=== PATIENT | female | born 1960 | race Caucasian/White ===

== ENCOUNTER 2024-09-01 22:23 | Emergency (ER) | payer MEDICARE, OTHER, SELFPAY ==
--- OUTSIDE RECORDS SUMMARY | 2024-09-01 22:25 | XMS_ITS | Clinical Summary ---
Author Organization [facility] Address [address] [place] [address] Phone Care Team Providers Care Scholastic Aptitude Test Grader Name Role Phone Laquita Victoria MD Primary Care Provider [phone] Source Comments Arganteal is fully rolled out on Zynstra. Last update 01/09/09.[facility] Allergies No known active allergies Medications * This document contains information received from the source organization and may not represent a complete record from that organization. * Be aware that medications may not be up to date as of this document. Always verify current medications with patient. 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 Atrophic vaginitis 06/21/2010 Resolved Problems Problem Noted Date Diagnosed Date Resolved Date Fatigue 06/01/2014 07/18/2019 Encounters Date Type Department Care Team Description 07/08/2024 Patient Outreach [facility] [address] [place] [address] Kamila Solis, IBCLC 06/24/2024 9:30 AM WAREHOUSE PULLER Office Visit [facility] [address] [place] [address] Laquita Victoria MD Colon cancer screening (Primary Dx); Routine history and physical examination of adult; Insomnia, unspecified type; Other fatigue; Medicare annual wellness visit, initial; Abnormal finding of blood chemistry, unspecified; Abnormal findings on diagnostic imaging of other parts of digestive tract Discharge Disposition: Discharged to home or self care 06/24/2024 Travel from Last 3 Months Immunizations Name Administration Dates Next Due COVID-19 Vaccine Bivalent (PFIZER) 12 Years and Older 05/19/2022 COVID-19 Vaccine Monovalent (PFIZER-COMIRNATY) 12 Years and Older 06/24/2024 Hepatitis A Vaccine (HAVRIX) - Adult 19 years and Older 07/17/2002,08/02/2001 Tetanus Toxoid, Reduced Diph theroid Toxoid Acellular Pertussis 12/11/2017 Family History Medical History Relation Name Comments Cancer Breast Maternal Grandmother Cancer Mother Cancer Breast Mother parkinson Mother Relation Name Status Comments Maternal Grandmother age of onset 55 Mother ageof onset 47 Social History Tobacco Use Types Packs/Day Years Used Date Smoking Tobacco: Never Smokeless Tobacco: Never Tobacco Cessation:Counseling Given: No Alcohol Use Standard Drinks/Week Comments No 0 (1 standard drink = 0.6 oz pur e alcohol) PHQ-2 Answer Date Recorded PHQ-2 Subtotal 0 06/24/2024 Hunger Vital Sign Answer Date Recorded Within the past 12 months, y ou worried that your food would run out before you got the money to buy more. Never true 06/24/20 24 Within the past 12 months, t he food you bought just didn't last and you didn't have money to get more. Never true 06/24/2024 Comments No Sex and Gender Information Value Date Recorded Sex Assigned at Female 09/19/2019 7:07 AM WAREHOUSE PULLER Legal Sex Female 12:52 AM WAREHOUSE PULLER Gender Identity Female 09/19/2019 7:07 AM WAREHOUSE PULLER Sexual Orientation Not on file Last Filed Vital Signs Vital Sign Reading Time Taken Comments Blood Pressure 131/80 06/24/2024 9:08 AM WAREHOUSE PULLER Pulse 61 06/24/2024 9:08 AM WAREHOUSE PULLER Temperature 36.7 C (98 F) 06/24/2024 9:08 AM WAREHOUSE PULLER Respiratory Rate - - Oxygen Saturation 98% 06/24/2024 9:08 AM WAREHOUSE PULLER Inhaled Oxygen Concentration - - Weight 76.6 kg (168 lb 12.8 oz) 06/24/2024 9:08 AM WAREHOUSE PULLER Height 154 cm (5' 0.63) 06/24/2024 9:08 AM WAREHOUSE PULLER Body Mass Index 32.28 06/24/2024 9:08 AM WAREHOUSE PULLER Plan of Treatment Health Maintenance Due Date Last Done Comments CT Colonography 1959 Colonoscopy 1959 Dental Oral Exam 1959 Dental Prophylaxis 1959 Dental X-Ray: Bitewings 1959 Sigmoidoscopy 1959 Periodontal Maintenance 1973 Medicare Annual Wellness 1977 Imm: Flu (#1) 04/07/2024 07/12/2023 iFOB/FIT 05/30/2024 05/30/2023, 01/05, 06/21/2010 Imm: Pneumonia greater than 65 years (1 of 1 - PCV) 2024 Osteoporosis Screening (Dexa Scan) 2024 HEALTH MAINTENANCE PROTOCOL 02/20/202502/04, 12/21/2021, 09/05/2011 MEDICATION REFILL PROTOCOL 02/20/202502/20, 12/21/2021, 05/26/2016 PREVENTATIVE VISIT 06/24/2025 06/24/2024, 1 , 01/14/2021, Additional history exists Breast Cancer Screening 09/12/2025 09/12/19, 05/24/2022, 05/24/2022, Additional history exists Colorectal Cancer Screening 06/26/2027 FIT/Cologuard 06/26/2027 06/26/2024 Imm: DTaP/Tdap (2 - Td or Tdap) 12/12/2027 12/11/2017 Lipid Screening 06/24/2029 06/24/2024, 07/07, 05/19/2022, Additional history exists Imm: HepA Aged Out 07/17/2002, 08/02/2001 No lo nger eligible based on patient's age to complete this topic Cervical Cancer Screening Age 30-65 Discontinued 12/11/2017, 11/27/2009 Imm: Zoster Completed 01/08/2024, 10/13/2023 Hepatitis C Screening Completed 06/24/2024 Imm: COVID-19 Completed 06/24/2024, 12/0 01/2023, 05/19/2022, Additional history exists HIV Screening Discontinued Imm: HPV Aged Out No longer eligi ble based on patient's age to complete this topic Imm: HepB Aged Out No longer eligi ble based on patient's age to complete this topic Imm: Hib Aged Out No longer eligi ble based on patient's age to complete this topic Imm: Meningitis Aged Out No longer el igible based on patient's age to complete this topic Procedures Procedure Name Priority Date/Time Associated Diagnosis Comments TC LAB COLLECTION: VENOUS DRAW-HB CLINICS Routine 06/24/2024 10:35 AM WAREHOUSE PULLER EXTRA TUBE - LAVENDER Routine 06/24/2024 10:35 AM WAREHOUSE PULLER PANEL LIPID Routine 06/24/2024 10:32 AM WAREHOUSE PULLER Routine history and physical examination of adult Other fatigue Medicare annual wellness visit, initial Abnormal findings on diagnostic imaging of other parts of digestive tract C-REACTIVE PROTEIN Routine 06/24/2024 10 :32 AM WAREHOUSE PULLER Routine history and physical examination of adult Other fatigue Medicare annual wellness visit, initial PC TRIIODONTNYRONINE T3 FREE Routine 06/24/2024 10:32 AM WAREHOUSE PULLER Other fatigue Medicare annual wellness visit, initial T4 FREE (DIRECT ANALYSIS) Routine 2023 10:32 AM WAREHOUSE PULLER Other fatigue Medicare annual wellness visit, initial PC LAB THYROID PEROXIDASE LINDA TPO LINDA Routine 06/24/2024 10:32 AM WAREHOUSE PULLER Other fatigue Medicare annual wellness visit, initial PC THYROID STIMULATING HORMONE(TSH) VINH Routine 06/24/2024 10:32 AM WAREHOUSE PULLER Other fatigue Medicare annual wellness visit, initial PC BLOOD OCCULT FECAL HGB Routine 2022 8:00 AM CDT Colon cancer screening [facility] MAMMOGRAM SCRN SHELLEY DIGITAL Routine 05/24/2022 1:20 PM CDT Visit for screening mammogram PAP SMEAR FINAL REPORT Routine 0 2:02 PM CDT from Last 3 Months or Most Recently Relevant to Health Maintenance Results * EXTRA TUBE - LAVENDER (06/24/2024 10:35 AM WAREHOUSE PULLER) LAVENDER TUBE [facility] Comment:Lavendar (EDTA) tube s collected at [facility] are stored for 3 days from the collection date. Blood 06/24/2024 10:3 5 AM WAREHOUSE PULLER 06/24/2024 10:51 AM WAREHOUSE PULLER us Laquita Victoria MD LABORATORY Final Result Performing Organization Address City/[facility]/ZIP Co de Phone Number [facility] [address] [place] [address] * (ABNORMAL) GLYCOSYLATED HGB - A1C (06/24/2024 10:35 AM WAREHOUSE PULLER) Hemoglobin A1C 5.9(H) 4.0 - 5.6 % [facility] Comment: Increased risk for diabetes (prediabetes): 5.7-6.4% Diabetes >=6.5% In the absence of unequivocal hyperglycemia, diagnosis requires two abnormal test results (i.e. HbA1c and glucose) or two abnormal results from specimens collected at two different timepoints. The presence of some hemoglobin variants or red cell disorders may interfere with the measurement of hemoglobin A1c (HbA1c). Estimated Average Glucose 123(H) 68 - 114 mg/dL [facility] Comment: The estimated Average Glucose (eAG) was calculated using an equation derived from a study of 507 adults with type 1, type 2, or no diabetes. Minority populations were underrepresented and children were not included. The eAG is not equivalent to a fasting glucose concentration. Blood 06/24/2024 10:3 5 AM WAREHOUSE PULLER 06/24/2024 1:12 PM WAREHOUSE PULLER us Laquita Victoria MD LABORATORY Final Result [address] [address] * T3 FREE (06/24/2024 10:32 AM WAREHOUSE PULLER) T3 Free 2.9 2.0 - 4.4 pg/mL [facility] Serum 06/24/2024 10:3 2 AM WAREHOUSE PULLER 06/24/2024 1:55 PM WAREHOUSE PULLER Laquita Victoria MD LABORATORY Final Result Performing Organization Address City/[facility]/ZIP Co de Phone Number [address] [address] * TSH (06/24/2024 10:32 AM WAREHOUSE PULLER) TSH 2.89 0.27 - 4.20 mIU/L [facility] Blood 06/24/2024 10:3 2 AM WAREHOUSE PULLER 06/24/2024 1:57 PM WAREHOUSE PULLER Laquita Victoria MD LABORATORY Final Result Performing Organization Address [facility] Co de Phone Number [address] [address] * THYROID PEROXIDASE LINDA (TPO) (06/24/2024 10:32 AM WAREHOUSE PULLER) Pathologist [facility] TPO Linda 3.5 0.0 - 9.0 IU/mL [employer] Comment: Performed By: [facility] [address] [place] [id number] Bathhouse Keeper: Devon Erwin MD, PhD CLIA Number: [id number] Performed by [facility] [address] [place] [id number] [email or web address] Olvin Garcia MD, MS, Director of Laboratories Blood 06/24/2024 10:3 2 AM WAREHOUSE PULLER 06/24/2024 1:55 PM WAREHOUSE PULLER us Laquita Victoria MD LABORATORY Final Result Performing Organization Address City/[facility]/ZIP Co de Phone Number [employer] [address] [place] [address], * (ABNORMAL) PANEL LIPID (06/24/2024 10:32 AM WAREHOUSE PULLER) Cholesterol 287(H) <=200 mg/dL [facility] Comment: Interpretive Data <200 Desirable 200-239 Borderline high >=240 High HDL 74 >=50 mg/dL [facility] Comment: Interpretive Data Normal > 40 Male > 50 Female Triglyceride 112 <=150 mg/dL [facility] Comment: Interpretive Data <150 Normal 150-199 Borderline high 200-499 High >=500 Very high Calc LDL 191(H) <=100 mg/dL [facility] Comment: Interpretive Data <100 Desirable 100-129 Above desirable 130-159 Borderline high 160-189 High >=190 Very high Non-HDL Cholesterol Calculated 213(H) <=130 mg/dL [facility] Comment: Interpretive Data <130 Desirable 130-159 Above desirable 160-189 Borderline high 190-219 High >=220 Very high Blood 06/24/2024 10:3 2 AM WAREHOUSE PULLER 06/24/2024 1:57 PM WAREHOUSE PULLER Narrative [facility] - 06/24/2024 2:36 PM WAREHOUSE PULLER Fasting: Yes us Laquita Victoria MD LABORATORY Edited Result - Final [facility] [address] [address] * T4 FREE (DIRECT ANALYSIS) (06/24/2024 10:32 AM WAREHOUSE PULLER) T4 Free 1.2 0.9 - 1.7 ng/dL [facility] Blood 06/24/2024 10:3 2 AM WAREHOUSE PULLER 06/24/2024 1:57 PM WAREHOUSE PULLER us Laquita Victoria MD LABORATORY Final Result [facility] [address] [address] * C-REACTIVE PROTEIN (06/24/2024 10:32 AM WAREHOUSE PULLER) C-Reactive Protein <3 <=4 mg/L [facility] Blood 06/24/2024 10:3 2 AM WAREHOUSE PULLER 06/24/2024 1:57 PM WAREHOUSE PULLER us Laquita Victoria MD LABORATORY Final Result Performing Organization Address [facility] Co de Phone Number [facility] [address] [address] * IFOB (FECAL OCCULT BLOOD IMMUNOASSAY) (05/30/2023 8:00 AM CDT) Fecal Occult Blood Immunoassay Negative Negative [facility] Feces 05/30/2023 8:00 AM CDT 05/30/2023 10:56 PM CDT us Laquita Victoria MD LABORATORY Final Result Performing Organization Address [facility] de Phone Number [facility] [address] [address] * [facility] MAMMOGRAM SCREEN BILAT DIGITAL (05/24/2022 1:20 PM CDT) Anatomical Region Laterality Modality Breast Bilateral Mammography Narrative 05/25/2022 8:14 AM CDT [facility] MAMMOGRAM SCREEN BILAT DIGITAL 05/24/2022 1320 FINDINGS: The breast tissue demonstrates scattered fibroglandular densities. No mass, malignant appearing calcifications or secondary signs of carcinoma evident. No mammographic evidence of malignancy in the breasts. Recommend continued screening. This imaging procedure was performed using FFDM us Laquita Victoria MD RAD MAMMO Final Result * PAP SMEAR FINAL REPORT (11/27/2009 2:02 PM CDT) Pap Final [facility] Accession Number: [id number] Source: SurePath liquid-based Pap test Final Interpretation: NEGATIVE FOR INTRAEPITHELIAL LESION OR MALIGNANCY * Report Electronically Signed By * TROY Ortiz, CT(ASCP) Screening Performed By: TROY Ortiz, CT(ASCP) AMT 12/04/09 Adequacy Interpretation: Satisfactory For Evaluation. Clinical History: MENSTRUAL STATUS: Not LMP: _ PREVIOUS ABNORMALS: _ HORMONE STATUS: _ [facility] 11/27/2009 2:02 PM CDT us Laquita Victoria MD LAB PATHOLOGY Final Result [facility] [address] [place] [address] from Last 3 Months or Most Recently Relevant to Health Maintenance Insurance [place] MEDICAID [employer] Address: [facility] [address] [address] [place] [address] MEDICARE Care Teams Scholastic Aptitude Test Grader Relationship Specialty Start Date End Date Laquita Victoria MD PCP - General Family Medicine 11/25/09
--- OUTSIDE RECORDS SUMMARY | 2024-09-01 22:25 | XMS_ITS ---
Author Organization [facility] Address [address] [place] [address] Care Team Providers Care Car Unloader Helper Name Role Phone Unavailable Unavailable Unavailable Surgery Details Not on file Complications Check Surgery Details section. Procedure Estimated Blood Loss Check Surgery Details section. Procedure Findings Check Surgery Details section. Procedure Specimens Taken Check Surgery Details section.
--- OUTSIDE RECORDS SUMMARY | 2024-09-01 22:25 | XMS_ITS | Clinical Summary ---
Author Organization [facility] Address [address] [place] [address] Care Team Providers Care Tai Chi Instructor Name Role Phone Clyde Ayala M.D. Primary Care Provider [phone] Source Comments Patient records contain information from all sites at [facility]. For routine questions regarding patient records, call [phone] during business hours, M-F 8:00 AM - 5:00 PM Central Time. Record requests for emergency care only can be directed to [phone] at any time.[facility] Allergies No known active allergies Medications estradiol 0.01% oil in vanicream 08/07/2015 Active estradioL (ESTRACE) 0.1 mg/g (0.01%) vaginal cream APPLY 1G TO VAGINA DAILY FOR 7 DAYS, THEN DECREASE TO 1-3 TIMES WEEKLY 09/29/2023 Active Active Problems Problem Noted Date Diagnosed Date Hyperlipidemia Mixed 07/17/2023 Restless Leg Syndrome 08/12/2022 Postmenopausal Atrophic Vaginitis 06/21/2010 Encounters Date Type Department Care Team Description 06/11/2024 Orders Only [facility] Clyde Ayala M.D. Hyperlipidemia Mixed from Last 3 Months Immunizations Immunization Administration Dates Next Due HepA Adult 07/17/2002,08/02/2001 HepA, Unspecified 07/17/2002,08/02/2001 RZV (SHINGRIX) 10/13/2023 Tdap 12/11/2017 influenza vaccine quad (FLUZ ONE/FLUARIX) (6 months and older)(PF) 07/12/2023 Family History Medical History Relation Name Comments Colon cancer Brother Mao Marlow Dementia Father Dinh Marlow Stroke induced dementia Stroke Father Dinh Marlow Breast cancer Maternal Grandmother Anxiety disorder Mother Carissa Marlow with the Pa luisa Breast cancer Mother Carissa Marlow masectomy, sole vived 40 years Dementia Mother Carissa Marlow parkinsons rela george dementia Parkinson disease Mother Carissa Marlow at 89 Melanoma Sister Nadya Christine Relation Name Status Comments Brother Mao Marlow Alive AT AGE 63. Father Dinh Marlow Maternal Grandmother Mother Carissa Marlow Sister Nadya Christine Social History Tobacco Use Types Packs/Day Years Used Date Smoking Tobacco: Never Smokeless Tobacco: Never Tobacco Cessation:Counseling Given: Yes Alcohol Use Standard Drinks/Week Comments Yes 0 (1 standard drink = 0.6 oz pur e alcohol) 0ne glass a month Overall Financial Resource Strain (CARDIA) Answe r Date Recorded How hard is it for you to pa y for the very basics like food, housing, medical care, and heating? Not hard at all 07/10/2023 PHQ-2 Answer Date Recorded PHQ-2 Score 0 11/23/2023 Exercise Vital Sign Answer Date Recorde d On average, how many days pe r week do you engage in moderate to strenuous exercise (like a brisk walk)? 6 days 07/10/2023 On average, how many minutes do you engage in exercise at this level? 60 min 07/10/2023 Hunger Vital Sign Answer Date Recorded Within the past 12 months, y ou worried that your food would run out before you got the money to buy more. Never true 07/10/20 23 Within the past 12 months, t he food you bought just didn't last and you didn't have money to get more. Never true 07/10/2023 PRAPARE - Transportation Answer Date Re corded In the past 12 months, has l ack of transportation kept you from medical appointments or from getting medications? No 11/2022 In the past 12 months, has l ack of transportation kept you from meetings, work, or from getting things needed for daily living? No 07/10/2023 Nutrition Answer Date Recorded Nutrition: EVOO Fat Source Unknown 07/10 On average, how many serving s of fruits and vegetables do you eat per day (serving size is equal to 1 cup or approximately the size of a tennis ball)? 5 or more 07/10/2023 Dental Answer Date Recorded Dental: Regular Dentist Yes 07/10/20 Employment Answer Date Recorded Employment status Employed and actively working without restrictions 07/10/2023 Housing Stability Answer Date Recorded What is your living situation today? I have a [facility] place to live 07/10/2023 Comments No Sex and Gender Information Value Date Recorded Sex Assigned at Female 07/10/2023 11:26 AM [employer] Legal Sex Female 2:27 PM [employer] Gender Identity Female 07/10/2023 11:26 AM [employer] Sexual Orientation Straight 07/10/2023 11 :26 AM [employer] Last Filed Vital Signs Vital Sign Reading Time Taken Comments Blood Pressure 112/71 11/23/2023 3:17 PM CDT Pulse 73 11/23/2023 3:17 PM CDT Temperature 36.6 C (97.9 F) 11/23/2023 3:17 PM CDT Respiratory Rate 20 11/23/2023 3:17 PM CDT Oxygen Saturation 98% 07/17/2023 3:06 PM [employer] Inhaled Oxygen Concentration - - Weight 75.8 kg (167 lb) 11/23/2023 3:17 PM CDT Height 158.5 cm (5' 2.4) 07/17/2023 3:06 PM [employer] Body Mass Index 30.15 07/17/2023 3:06 PM [employer] Plan of Treatment Upcoming Encounters Date Type Department Care Team (Late st Contact Info) Description 10/01/2024 3:00 PM [employer] Appointment Department of Radiology in [place], [place] [address] [place] [phone] Clyde Ayala M.D. [address] [place] [phone] Discharge Disposition: Home or Self Care Health Maintenance Due Date Last Done Comments Bone Density Scan (Osteoporosis Screen) 1959 CT Colonography 1959 Hepatitis C Screening 1960 Pneumococcal vaccine (50+ years) (1 of 1 - PCV) 2009 Zoster Vaccines (2 of 2) 12/08/2023 10/13/2023 Influenza Vaccine (#1) 2024 07/12/2023 Colonoscopy 05/30/2024 05/30/2023 (Perf ormed elsewhere) Colorectal Cancer Surveillance 06/19/2024 Lipid (Cholesterol) Screening 07/17/2024 07/17/2023 Depression Screening (Annual PHQ-2) 08/07/2024 Fall Risk Screen (Annual) 08/07/2024 Mammogram 09/12/2024 09/12/2023, 05/07, 05/24/2022, Additional history exists Fasting Glucose for Diabetes Screening 11/22/2024 11/23/2023, 07/17/2023 Visit: Annual, age 65+ (or Medicare and <65) 11/22/2024 11/23/2023 Cologuard 06/18/2027 06/18/2024 DTaP,Tdap,and Td Vaccines (2 - Td or Tdap) 12/12/2027 12/11/2017 Cervical/Vaginal Cancer Screening 07/17/2028 07/17/2023, 07/17/2023, 12/11/2017 Hepatitis A Vaccines Completed 07/17/2002, 07/17/2002, 08/02/2001, Additional history exists COVID-19 Vaccine Completed 06/24/2024, 01/2023, 05/19/2022, Additional history exists IPV Vaccines Aged Out No longer eligi ble based on patient's age to complete this topic Procedures Procedure Name Priority Date/Time Associated Diagnosis Comments BASIC METABOLIC PANEL, S/P Routine 11/23/2023 4:08 PM CDT Pain Hip Right Pain Toe Left BI BREAST SCREENING BILATERAL WITH TOMOSYNTHESIS RAD - Routine (most inpatients and all outpatients) 09/12/2023 5:08 PM [employer] Screening Mammogram Breast Cancer HPV WITH GENOTYPING, PCR, THINPREP Routine 07/17/2023 4:04 PM [employer] LIPID PANEL, S Routine 07/17/2023 3:55 PM [employer] Hyperlipidemia Mixed from Last 3 Months or Most Recently Relevant to Health Maintenance Results * Basic Metabolic Panel (11/23/2023 4:08 PM CDT) Potassium, P 4.3 3.6 - 5.2 mmol/L 11/23/2023 8:05 PM CDT NPRG Sodium, P 140 135 - 145 mmol/L 11/23/2023 8:05 PM CDT NPRG Chloride, P 103 98 - 107 mmol/L 11/23/2023 8:05 PM CDT NPRG Bicarbonate, P 29 22 - 29 mmol/L 11/23/2023 8:05 PM CDT NPRG Anion Gap, P 8 7 - 15 11/23/2023 8:05 PM CDT NPRG BUN (Blood Urea Nitrogen), P 14 6 - 21 mg/dL 11/23/2023 8:05 PM CDT NPRG Creatinine 0.72 0.59 - 1.04 mg/dL 11/23/2023 8:05 PM CDT NPRG Estimated GFR (eGFR) >90 >=60 mL/min/BSA 11/23/2023 8:05 PM CDT NPRG Comment: Estimated GFR calculated using the 2020 CKD_EPI creatinine equation. Calcium, Total, P 9.4 8.8 - 10.2 mg/dL 11/23/2023 8:05 PM CDT NPRG Glucose, P 98 70 - 140 mg/dL 11/23/2023 8:05 PM CDT NPRG Blood (Blood, Venous) 11/23/2023 4:08 PM CDT 11/23/2023 7:12 PM CDT us Neftaly Mantilla M.D. LAB BLOOD ADD-ON Final Result [facility] [address] [place] [address], [place] NPRG [facility] [address] [place] [address] * BI Breast Screening Bilateral with Tomosynthesis (09/12/2023 5:08 PM [employer]) Anatomical Region Laterality Modality Breast, Breast Imaging RST L OS, Breast Imaging ARZ LOS, Breast Imaging FLA LOS Bilateral Mammography Impressions 09/19/2023 10:04 AM [employer] Negative. RECOMMENDATION: Annual Screening Mammogram ASSESSMENT: BI-RADS: 1: Negative. Narrative 09/19/2023 10:04 AM [employer] EXAM: BI BREAST SCREENING BILATERAL WITH TOMOSYNTHESIS Current study was evaluated with a Computer Aided Detection (CAD) system. INDICATION: Screening mammogram. COMPARISON: Prior exam(s) were available and reviewed for comparison. DENSITY: b. There are scattered areas of fibroglandular density. FINDINGS: No mammographic findings of malignancy. Procedure Note Peggy Hernandez M.D. - 09/19/2023 EXAM: BI BREAST SCREENING BILATERAL WITH TOMOSYNTHESIS Current study was evaluated with a Computer Aided Detection (CAD) system. INDICATION: Screening mammogram. COMPARISON: Prior exam(s) were available and reviewed for comparison. DENSITY: b. There are scattered areas of fibroglandular density. FINDINGS: No mammographic findings of malignancy. IMPRESSION: Negative. RECOMMENDATION: Annual Screening Mammogram ASSESSMENT: BI-RADS: 1: Negative. us Clyde Ayala M.D. IMG BI PROCEDURES Final Result * HPV with Genotyping, PCR, ThinPrep (07/17/2023 4:04 PM [employer]) HPV with Genotyping, ThinPrep, PCR Negative Negative 07/18/2023 2:49 PM [employer] MKTO Comment: Negative for high risk HPV by nucleic acid amplification. The following high risk HPV types were not detected: 16, 18, 31, 33, 35, 39, 45, 51, 52, 56, 58, 59, 66, and 68 This result does not rule out HPV in the patient, as the sensitivity of the test depends on the timing of the specimen collection and the quality of the specimen. Result should be correlated with patient's history, clinical presentation, and POSTIE cytology report. 07/17/2023 4:04 PM [employer] 07/18/2023 7:00 AM [employer] us Clyde Ayala M.D. LAB MICROBIOLOGY - GENERAL ORDER VINAY Final Result [facility] [address] [place] [address], [facility] [address] [facility] [address] [place] [address] * (ABNORMAL) Lipid Panel (07/17/2023 3:55 PM [employer]) Triglycerides 150(H) mg/dL 07/17/2023 8:04 PM [employer] NPRG Comment: ----REFERENCE VALUE---- Normal: <150 mg/dL Borderline High: 150-199 mg/dL High: 200-499 mg/dL Very High: > or =500 mg/dL Cholesterol, Total 229(H) mg/dL 2022 8:04 PM [employer] NPRG Comment: ----REFERENCE VALUE---- Desirable: < 200 mg/dL Borderline High: 200 - 239 mg/dL High: > or = 240 mg/dL Cholesterol, LDL, Calculated 142(H) mg/dL 07/17/2023 8:04 PM [employer] NPRG Comment: ----REFERENCE VALUE---- Desirable: <100 mg/dL Above Desirable: 100-129 mg/dL Borderline High: 130-159 mg/dL High: 160-189 mg/dL Very High: >=190 mg/dL ----ADDITIONAL INFORMATION---- LDL cholesterol calculated using the Murillo/NIH equation. Cholesterol, HDL 60 >=50 mg/dL 07/17/20 8:04 PM [employer] NPRG Cholesterol, Non-HDL, Calculated 169(H) mg/dL 07/17/2023 8:04 PM [employer] NPRG Comment: ----REFERENCE VALUE---- Desirable: <130 mg/dL Above Desirable: 130-159 mg/dL Borderline High: 160-189 mg/dL High: 190-219 mg/dL Very High: > or =220 mg/dL Fasting (8 HR or more) No 07/17/2023 7:05 PM [employer] NPRG Blood (Blood, Venous) 07/17/2023 3:55 PM [employer] 07/17/2023 7:05 PM [employer] us Clyde Ayala M.D. LAB BLOOD ADD-ON Final Result [facility] [address] [place] [address], [facility] NPRG [facility] [address] [place] [address] from Last 3 Months or Most Recently Relevant to Health Maintenance Insurance [facility] Care Teams Tai Chi Instructor Relationship Specialty Start Date End Date Clyde Ayala M.D. [address] [place] [phone] PCP - General Family Medicine 07/17/23
--- OUTSIDE RECORDS SUMMARY | 2024-09-01 22:25 | XMS_ITS | Referral Summary ---
Author Organization [facility] Address [address] [place] [address] Care Team Providers Care Remote Medical Coder Name Role Phone Clyde Ayala M.D. Primary Care Provider [phone] Source Comments Patient records contain information from all sites at [facility]. For routine questions regarding patient records, call [phone] during business hours, M-F 8:00 AM - 5:00 PM Central Time. Record requests for emergency care only can be directed to [phone] at any time.[facility] Encounters Date Type Department Care Team Description 06/11/2024 Orders Only [facility] Clyde Ayala M.D. Hyperlipidemia Mixed from Last 3 Months Allergies No known active allergies Medications estradiol 0.01% oil in vanicream 08/07/2015 Active estradioL (ESTRACE) 0.1 mg/g (0.01%) vaginal cream APPLY 1G TO VAGINA DAILY FOR 7 DAYS, THEN DECREASE TO 1-3 TIMES WEEKLY 09/29/2023 Active Active Problems Problem Noted Date Diagnosed Date Hyperlipidemia Mixed 07/17/2023 Restless Leg Syndrome 08/12/2022 Postmenopausal Atrophic Vaginitis 06/21/2010 Immunizations Immunization Administration Dates Next Due HepA Adult 07/17/2002,08/02/2001 HepA, Unspecified 07/17/2002,08/02/2001 RZV (SHINGRIX) 10/13/2023 Tdap 12/11/2017 influenza vaccine quad (FLUZ ONE/FLUARIX) (6 months and older)(PF) 07/12/2023 Social History Tobacco Use Types Packs/Day Years [...] money to buy more. Never true 07/10/20 Within the past 12 months, t he [...] your living situation today? I have a [facility] place to live 07/10/2023 Comments No Sex and Gender Information Value Date Recorded Sex Assigned at Female 07/10/2023 11:26 AM [employer] Legal Sex Female 2:27 PM [employer] Gender Identity Female 07/10/2023 11:26 AM [employer] Sexual Orientation Straight 07/10/2023 11 :26 AM [employer] Last Filed Vital Signs Vital Sign Reading Time Taken Comments Blood Pressure 112/71 11/23/2023 3:17 PM CDT Pulse 73 11/23/2023 3:17 PM CDT Temperature 36.6 C (97.9 F) 11/23/2023 3:17 PM CDT Respiratory Rate 20 11/23/2023 3:17 PM CDT Oxygen Saturation 98% 07/17/2023 3:06 PM [employer] Inhaled Oxygen Concentration - - Weight 75.8 kg (167 lb) 11/23/2023 3:17 PM CDT Height 158.5 cm (5' 2.4) 07/17/2023 3:06 PM [employer] Body Mass Index 30.15 07/17/2023 3:06 PM [employer] Plan of Treatment Upcoming Encounters Date Type Department Care Team (Late st Contact Info) Description 10/01/2024 3:00 PM [employer] Appointment Department of Radiology in [place], [place] [address] [place] [phone] Clyde Ayala M.D. [address] [place] [phone] Discharge Disposition: Home or Self Care Procedures Procedure Name Priority Date/Time Associated Diagnosis Comments BASIC METABOLIC PANEL, S/P Routine 11/23/2023 4:08 PM CDT Pain Hip Right Pain Toe Left BI BREAST SCREENING BILATERAL WITH TOMOSYNTHESIS RAD - Routine (most inpatients and all outpatients) 09/12/2023 5:08 PM [employer] Screening Mammogram Breast Cancer HPV WITH GENOTYPING, PCR, THINPREP Routine 07/17/2023 4:04 PM [employer] LIPID PANEL, S Routine 07/17/2023 3:55 PM [employer] Hyperlipidemia Mixed from Last 3 Months or [...] Mantilla M.D. LAB BLOOD ADD-ON Final Result [facility] [address] [place] [address], [facility] NPRG [facility] [address] [place] [address] * BI Breast Screening Bilateral with Tomosynthesis (09/12/2023 5:08 PM [employer]) Anatomical Region Laterality Modality Breast, Breast Imaging RST L OS, Breast Imaging ARZ LOS, Breast Imaging FLA LOS Bilateral Mammography Impressions 09/19/2023 10:04 AM [employer] Negative. RECOMMENDATION: Annual Screening Mammogram ASSESSMENT: BI-RADS: 1: Negative. Narrative 09/19/2023 10:04 AM [employer] EXAM: BI BREAST SCREENING BILATERAL WITH TOMOSYNTHESIS [...] with Genotyping, PCR, ThinPrep (07/17/2023 4:04 PM [employer]) HPV with Genotyping, ThinPrep, PCR Negative Negative 07/18/2023 2:49 PM [employer] MKTO Comment: Negative for high risk HPV [...] correlated with patient's history, clinical presentation, and [facility]LL[facility] cytology report. 07/17/2023 4:04 PM [employer] 07/18/2023 7:00 AM [employer] us Clyde Ayala M.D. LAB MICROBIOLOGY - GENERAL ORDER VINAY Final Result [facility] [address] [place] [id number], [facility] MKTO [address] [place] [id number] * (ABNORMAL) Lipid Panel (07/17/2023 3:55 PM [employer]) Triglycerides 150(H) mg/dL 07/17/2023 8:04 PM [employer] NPRG Comment: ----REFERENCE VALUE---- Normal: <150 mg/dL Borderline High: 150-199 mg/dL High: 200-499 mg/dL Very High: > or =500 mg/dL Cholesterol, Total 229(H) mg/dL 2022 8:04 PM [employer] NPRG Comment: ----REFERENCE VALUE---- Desirable: < 200 mg/dL Borderline High: 200 - 239 mg/dL High: > or = 240 mg/dL Cholesterol, LDL, Calculated 142(H) mg/dL 07/17/2023 8:04 PM [employer] NPRG Comment: ----REFERENCE VALUE---- Desirable: <100 mg/dL Above Desirable: 100-129 mg/dL Borderline High: 130-159 mg/dL High: 160-189 mg/dL Very High: >=190 mg/dL ----ADDITIONAL INFORMATION---- LDL cholesterol calculated using the Murillo/NIH equation. Cholesterol, HDL 60 >=50 mg/dL 07/17/20 8:04 PM [employer] NPRG Cholesterol, Non-HDL, Calculated 169(H) mg/dL 07/17/2023 8:04 PM [employer] NPRG Comment: ----REFERENCE VALUE---- Desirable: <130 mg/dL Above Desirable: 130-159 mg/dL Borderline High: 160-189 mg/dL High: 190-219 mg/dL Very High: > or =220 mg/dL Fasting (8 HR or more) No 07/17/2023 7:05 PM [employer] NPRG Blood (Blood, Venous) 07/17/2023 3:55 PM [employer] 07/17/2023 7:05 PM [employer] us Clyde Ayala M.D. LAB BLOOD ADD-ON Final Result [facility] [address] [place] [address], [place] NPRG [facility] [address] [place] [address] from Last 3 Months or Most Recently Relevant to Health Maintenance Insurance [employer] Care Teams Remote Medical Coder Relationship Specialty Start Date End Date Clyde Ayala M.D. [address] [facility] [place] [phone] PCP - General Family Medicine 07/17/23
--- OUTSIDE RECORDS SUMMARY | 2024-09-01 22:26 | XMS_ITS | Referral Summary ---
Author Organization [facility] Address [address] [place] [address] Phone Care Team Providers Care Parts Fabricator Name Role Phone Laquita Victoria MD Primary Care Provider [phone] Source Comments MSA Management is fully rolled out on [employer]. Last update 01/09/09.Darwin EPV SOLAR Encounters Date Type Department Care Team Description 07/08/2024 Patient Outreach [facility] [address] [place] [address] Kamila Solis IBCLC 06/24/2024 Travel 06/24/2024 9:30 AM CLAIM AGENT Office Visit [facility] [address] [place] [address] Laquita Victoria MD Colon cancer screening (Primary Dx); Routine history and physical examination of adult; Insomnia, unspecified type; Other fatigue; Medicare annual wellness visit, initial; Abnormal finding of blood chemistry, unspecified; Abnormal findings on diagnostic imaging of other parts of digestive tract Discharge Disposition: Discharged to home or self care from Last 3 Months Allergies No known active allergies Medications * [...] to 1-3 times weekly 30 each 3 Active estradiol (ESTRACE) 0.1 mg/g vaginal vaginal cream APPLY 1G TO VAGINA DAILY FOR 7 DAYS, THEN DECREASE TO 1-3 TIMES WEEKLY 42.5 g 3 3 Active Active Problems Problem Noted Date Diagnosed Date RLS (restless legs syndrome) 08/12/2022 Thyroid activity decreased 06/23/2014 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 Atrophic vaginitis 06/21/2010 Resolved Problems Problem Noted Date Diagnosed Date Resolved Date Fatigue 06/01/2014 07/18/2019 Immunizations Name Administration Dates Next Due COVID-19 Vaccine Bivalent (PFIZER) 12 Years and Older 05/19/2022 COVID-19 Vaccine Monovalent (PFIZER-COMIRNATY) 12 Years and Older 06/24/2024 Hepatitis A Vaccine (HAVRIX) - Adult 19 years and Older 07/17/2002,08/02/2001 Tetanus Toxoid, Reduced Diph theroid Toxoid Acellular Pertussis 12/11/2017 Social History Tobacco Use Types Packs/Day Years [...] Sex Assigned at Female 09/19/2019 7:07 AM CLAIM AGENT Legal Sex Female 12:52 AM CLAIM AGENT Gender Identity Female 09/19/2019 7:07 AM CLAIM AGENT Sexual Orientation Not on file Last Filed Vital Signs Vital Sign Reading Time Taken Comments Blood Pressure 131/80 06/24/2024 9:08 AM CLAIM AGENT Pulse 61 06/24/2024 9:08 AM CLAIM AGENT Temperature 36.7 C (98 F) 06/24/2024 9:08 AM CLAIM AGENT Respiratory Rate - - Oxygen Saturation 98% 06/24/2024 9:08 AM CLAIM AGENT Inhaled Oxygen Concentration - - Weight 76.6 kg (168 lb 12.8 oz) 06/24/2024 9:08 AM CLAIM AGENT Height 154 cm (5' 0.63) 06/24/2024 9:08 AM CLAIM AGENT Body Mass Index 32.28 06/24/2024 9:08 AM CLAIM AGENT Plan of Treatment Not on file Procedures Procedure Name Priority Date/Time Associated Diagnosis Comments TC LAB COLLECTION: VENOUS DRAW-HB CLINICS Routine 06/24/2024 10:35 AM CLAIM AGENT EXTRA TUBE - LAVENDER Routine 06/24/2024 10:35 AM CLAIM AGENT PANEL LIPID Routine 06/24/2024 10:32 AM CLAIM AGENT Routine history and physical examination of adult Other fatigue Medicare annual wellness visit, initial Abnormal findings on diagnostic imaging of other parts of digestive tract C-REACTIVE PROTEIN Routine 06/24/2024 10 :32 AM CLAIM AGENT Routine history and physical examination of adult Other fatigue Medicare annual wellness visit, initial PC TRIIODONTNYRONINE T3 FREE Routine 06/24/2024 10:32 AM CLAIM AGENT Other fatigue Medicare annual wellness visit, initial T4 FREE (DIRECT ANALYSIS) Routine 2023 10:32 AM CLAIM AGENT Other fatigue Medicare annual wellness visit, initial PC LAB THYROID PEROXIDASE LINDA TPO LINDA Routine 06/24/2024 10:32 AM CLAIM AGENT Other fatigue Medicare annual wellness visit, initial PC THYROID STIMULATING HORMONE(TSH) VINH Routine 06/24/2024 10:32 AM CLAIM AGENT Other fatigue Medicare annual wellness visit, initial PC BLOOD OCCULT FECAL HGB Routine 2022 8:00 AM CDT Colon cancer screening JANY MAMMOGRAM SCRN SHELLEY DIGITAL Routine 05/24/2022 1:20 PM CDT Visit for screening mammogram PAP SMEAR FINAL REPORT Routine 0 2:02 PM CDT from Last 3 Months or Most Recently Relevant to Health Maintenance Results * EXTRA TUBE - LAVENDER (06/24/2024 10:35 AM CLAIM AGENT) [facility] Comment:Lavendar (EDTA) tube s collected at [facility] are stored for 3 days from the collection date. Blood 06/24/2024 10:3 5 AM CLAIM AGENT 06/24/2024 10:51 AM CLAIM AGENT Laquita Victoria MD LABORATORY Final Result [facility] [address] [place] [address] * (ABNORMAL) GLYCOSYLATED HGB - A1C (06/24/2024 10:35 AM CLAIM AGENT) Hemoglobin A1C 5.9(H) 4.0 - 5.6 % [facility] Comment: Increased risk for diabetes (prediabetes): [...] Average Glucose 123(H) 68 - 114 mg/dL [facility] Comment: The estimated Average Glucose (eAG) was calculated using an equation derived from a study of 507 adults with type 1, type 2, or no diabetes. Minority populations were underrepresented and children were not included. The eAG is not equivalent to a fasting glucose concentration. Blood 06/24/2024 10:3 5 AM CLAIM AGENT 06/24/2024 1:12 PM CLAIM AGENT us Laquita Victoria MD LABORATORY Final Result [facility] [address] [place] [address] * T3 FREE (06/24/2024 10:32 AM CLAIM AGENT) T3 Free 2.9 2.0 - 4.4 pg/mL [facility] Serum 06/24/2024 10:3 2 AM CLAIM AGENT 06/24/2024 1:55 PM CLAIM AGENT Laquita Victoria MD LABORATORY Final Result Performing Organization Address City/[facility] Co de Phone Number [facility] [address] [address] * TSH (06/24/2024 10:32 AM CLAIM AGENT) TSH 2.89 0.27 - 4.20 mIU/L [facility] Blood 06/24/2024 10:3 2 AM CLAIM AGENT 06/24/2024 1:57 PM CLAIM AGENT Laquita Victoria MD LABORATORY Final Result Performing Organization Address [facility] Co de Phone Number [facility] [address] [address] * THYROID PEROXIDASE LINDA (TPO) (06/24/2024 10:32 AM CLAIM AGENT) [facility] TPO Linda 3.5 0.0 - 9.0 IU/mL [employer] Comment: Performed By: [employer] [address] [place] [id number] Cheese Packer: Devon Erwin MD, PhD CLIA Number: [id number] Performed by [employer] [address] [place] [id number] [email or web address] Olvin Garcia MD, MS, Director of Laboratories Blood 06/24/2024 10:3 2 AM CLAIM AGENT 06/24/2024 1:55 PM CLAIM AGENT us Laquita Victoria MD LABORATORY Final Result Performing Organization Address [facility] Co de Phone Number [employer] [address] [place] [phone], * (ABNORMAL) PANEL LIPID (06/24/2024 10:32 AM CLAIM AGENT) Pathologist [facility] Cholesterol 287(H) <=200 mg/dL [facility] Comment: Interpretive Data <200 Desirable 200-239 Borderline high >=240 High HDL 74 >=50 mg/dL [facility] Comment: Interpretive Data Normal > 40 Male > 50 Female Triglyceride 112 <=150 mg/dL [facility] Comment: Interpretive Data <150 Normal 150-199 Borderline high 200-499 High >=500 Very high Calc LDL 191(H) <=100 mg/dL [facility] Comment: Interpretive Data <100 Desirable 100-129 Above desirable 130-159 Borderline high 160-189 High >=190 Very high Non-HDL Cholesterol Calculated 213(H) <=130 mg/dL [facility] Comment: Interpretive Data <130 Desirable 130-159 Above desirable 160-189 Borderline high 190-219 High >=220 Very high Blood 06/24/2024 10:3 2 AM CLAIM AGENT 06/24/2024 1:57 PM CLAIM AGENT Narrative [facility] - 06/24/2024 2:36 PM CLAIM AGENT Fasting: Yes us Laquita Victoria MD LABORATORY Edited Result - Final Performing Organization Address [facility] Co de Phone Number [place] [phone] * T4 FREE (DIRECT ANALYSIS) (06/24/2024 10:32 AM CLAIM AGENT) T4 Free 1.2 0.9 - 1.7 ng/dL [facility] Blood 06/24/2024 10:3 2 AM CLAIM AGENT 06/24/2024 1:57 PM CLAIM AGENT us Laquita Victoria MD LABORATORY Final Result Performing Organization Address [facility] Co de Phone Number [facility] [address] [address] * C-REACTIVE PROTEIN (06/24/2024 10:32 AM CLAIM AGENT) C-Reactive Protein <3 <=4 mg/L [facility] Blood 06/24/2024 10:3 2 AM CLAIM AGENT 06/24/2024 1:57 PM CLAIM AGENT us Laquita Victoria MD LABORATORY Final Result Performing Organization Address [facility]/ZIP Co de Phone Number [facility] [address] [address] * IFOB (FECAL OCCULT BLOOD IMMUNOASSAY) (05/30/2023 8:00 AM CDT) Fecal Occult Blood Immunoassay Negative Negative [facility] Feces 05/30/2023 8:00 AM CDT 05/30/2023 10:56 PM CDT Laquita Victoria MD LABORATORY Final Result Performing Organization Address [facility] de Phone Number [facility] [address] [address] * [facility] MAMMOGRAM SCREEN BILAT DIGITAL (05/24/2022 1:20 PM CDT) Anatomical Region Laterality Modality Breast Bilateral Mammography Narrative 05/25/2022 8:14 AM CDT [facility] MAMMOGRAM SCREEN BILAT DIGITAL 05/24/2022 1320 FINDINGS: The breast tissue demonstrates scattered fibroglandular densities. No mass, malignant appearing calcifications or secondary signs of carcinoma evident. No mammographic evidence of malignancy in the breasts. Recommend continued screening. This imaging procedure was performed using FFDM us Laquita Victoria MD RAD MAMMO Final Result * PAP SMEAR FINAL REPORT (11/27/2009 2:02 PM CDT) Pap Final [facility] Accession Number: [id number] Source: SurePath liquid-based Pap test Final Interpretation: NEGATIVE FOR INTRAEPITHELIAL LESION OR MALIGNANCY * Report Electronically Signed By * TROY Ortiz, CT(ASCP) Screening Performed By: TROY Ortiz, CT(ASCP) AMT 12/04/09 Adequacy Interpretation: Satisfactory For Evaluation. Clinical History: MENSTRUAL STATUS: Not LMP: _ PREVIOUS ABNORMALS: _ HORMONE STATUS: _ [facility] 11/27/2009 2:02 PM CDT us Laquita Victoria MD LAB PATHOLOGY Final Result Performing Organization Address [facility]/ZIP Co de Phone Number [facility] [address] [address] from Last 3 Months or Most Recently Relevant to Health Maintenance [place] Care Teams Parts Fabricator Relationship Specialty Start Date End Date Laquita Victoria MD PCP - General Family Medicine 11/25/09
[2024-09-01 22:29] VITALS: BP 113/64; PULSE 75; RESP 18; TEMP 36.7; O2SAT 98; BMI 28.3
--- NOTE | 2024-09-01 23:27 | ED_ITS ---
HPI - General Adult General Date Seen: 09/01/24 Chief complaint: Eye Problems Stated complaint: left eye pain Time Seen by Provider: 09/01/24 23:26 History of Present Illness HPI narrative: * 64-year-old female presenting the ER tonight for evaluation of bilateral eye pain, itching, swelling, and redness. She is generally healthy. She 1st noted symptoms where she had a sharp feeling mostly in her left eye round 11:00 a.m. this morning. She has said she felt like she might have gotten something there but did not have any known exposure to foreign bodies. No exposure to chemicals or splashes. No objects striking her face. She rinsed out her eyes with an eye wash and then later this afternoon started developing recurrent itchy irritation initially of her left eye but subsequently involving her right eye as well. Along with that she has developed redness of both eyes and her eyelids, more prominent on the left than on the right. She has also developed purulent drainage from both eyes, blurry vision. She has not had any fevers or chills. She wonders if she might have contaminated her eyes by using an old eye wash cup. No other chemical exposure to her eyes or soaps when she washed her eyes out this morning. She sometimes wears glasses for driving but does not were contacts. No other eye problems. Related Data Home Medications ?Medication ?Instructions ?Recorded ?Confirmed No Known Home Medications 09/01/24 09/01/24 Allergies Allergy/AdvReac Type Severity Reaction Status Date / Time No Known Drug Allergies Allergy Verified 09/01/24 22:31 [facility] Social History Smoking Status: Never smoker Second hand tobacco smoke exposure: No How often do you have a drink containing alcohol: never AUDIT-C Alcohol total score: 0 Non-prescribed substance use: denies use Exam Narrative: Exam Narrative: Constitutional: Appears well-developed and well-nourished. Active. Non-toxic appearing. HENT: Head: Atraumatic. No signs of injury. Nose: No nasal discharge. Mouth/Throat: Mucous membranes are moist. Pharynx is normal. Tonsils symmetric. Uvula midline. Airway patent. Right eye:. She has mild erythema of the skin of her upper and lower lids with little bit of swelling there. There is greenish/yellowish thick mucousy eye discharge adherent to both her upper and lower eyelashes. When I open her eyes she does have diffuse erythema and injection and chemosis of the bulbar conjunctiva of the right eye. No foreign body. Cornea and iris and pupil looked normal. Left eye: She has marked erythemaof the skin of her upper and lower lids with little bit of swelling there. There is greenish/yellowish thick mucousy eye discharge adherent to both her upper and lower eyelashes. When I open her eyes she does have diffuse erythema and injection and chemosis of the bulbar conjunctiva of the right eye. Cornea and iris and pupil looked normal. No foreign body Normal range of motion of her extraocular muscles. No pain with range of motion. No exophthalmos or enophthalmos. Slit lamp exam reveals no corneal foreign body or foreign body underneath the upper or lower lids of her right eye or left eye. No fluorescein uptake on the cornea. No evidence for corneal ulcer, corneal abrasion, herpetic dendrites. Anterior chamber shows no cell or flare. I do not see any hypopyon or hyphema. Neck: Normal range of motion. Neck supple. No adenopathy. No stridor. Cardiovascular: Normal rate and regular rhythm. Pulmonary/Chest: Effort normal. No stridor. No respiratory distress. No wheezes.No rhonchi. No rales. Musculoskeletal: Normal range of motion. No edema. No tenderness. No deformity. Neurological: Alert. Normal strength. No cranial nerve deficit or sensory deficit. Coordination normal. GCS eye subscore is 4. GCS verbal subscore is 5. GCS motor subscore is 6. Skin: Skin is warm. No rash noted. Const: Vital Signs, click to edit/add: Vital Signs - 24 hr 09/01/24 22:29 09/02/24 00:17 09/02/24 00:20 Temperature 98.0 F 98.0 F 98.0 F Pulse Rate [Right Pulse Oximeter] 75 71 71 Respiratory Rate 18 18 18 Blood Pressure [Ri ght Upper Arm] 113/64 115/74 115/74 Pulse Oximetry 98 98 Oxygen Delivery Me thod Room Air Room Air Course Vital Signs Vital signs: Initial Vital Signs Temperature 98.0 F 09/01/24 22:29 Temperature Source Temporal Artery Scan 09/01/24 22:29 Pulse Rate 75 09/01/24 22:29 Respiratory Rate 18 09/01/24 22:29 Blood Pressure 113/64 09/01/24 22:29 Blood Pressure Mean 80 09/01/24 22:29 Blood Pressure Position Sitting 09/01/24 22:29 Pulse Oximetry 98 09/01/24 22:29 Oxygen Delivery Method Room Air 09/01/24 22:29 Vital Signs Temperature 98.0 F 09/01/24 22:29 Pulse Rate 75 09/01/24 22:29 Respiratory Rate 18 09/01/24 22:29 Blood Pressure 113/64 09/01/24 22:29 Pulse Oximetry 98 09/01/24 22:29 Oxygen Delivery Method Room Air 09/01/24 22:29 Temperature 98.0 F 09/02/24 00:20 Pulse Rate 71 09/02/24 00:20 Respiratory Rate 18 09/02/24 00:20 Blood Pressure 115/74 09/02/24 00:20 Pulse Oximetry 98 09/02/24 00:17 Oxygen Delivery Method Room Air 09/02/24 00:17 Medications Administered Medications: Discontinued Medications Generic Name Dose Route Start Last Admin Trade Name Balajiq PRN Reason Stop Dose Admin Fluorescein Sodium 1 strip 09/01/24 23:27 09/01/24 23:29 Fluorescein Sodium Topical Strip EYE-LEFT 09/01/24 23:28 1 strip ONCE ONE Administration Tetracaine HCl 2 drop 09/01/24 23:27 09/01/24 23:29 Tetracaine 0.5% Ophth EYE-LEFT 09/01/24 23:28 2 drop ONCE ONE Administration Medical Decision Making MDM Narrative Medical decision making narrative: This patient presents for evaluation of bilateral itchy red inflamed eyes, eyelids with copious purulent drainage bilaterally. Symptoms began this morning around 11 and gotten worse this evening. A broad differential diagnosis was considered including bacterial conjunctivitis, viral conjunctivitis, foreign body, corneal abrasion, chemical vs allergic conjunctivitis, corneal ulcer, HSV, herpes zoster opthalmicus, endopthalmitis, orbital cellulitis, etc. Signs and symptoms consistent with a conjunctivitis, likely bacterial. Will start antibiotics and have close follow-up of eye physician. No red flag symptoms to suggest any of the above worrisome etiologies. She does not wear contacts. No known chemical exposure. No dendrite or ulcer seen on slit lamp exam. At this point she is safe to discharge home with gentamicin ophthalmic drops. Would recommend close outpatient follow-up with her creative arts therapist for re- evaluation. Precautions for return to the ER reviewed. Questions answered. Discharge Plan Discharge Clinical Impression: Conjunctivitis Patient Disposition: Home, Self-Care Condition: Stable Instructions: Conjunctivitis (ED) Additional Instructions: Please start on the antibiotic eyedrops tonight. Use the gentamicin 2 drops into each eye every 4 hours while you are awake for the next 7 days Please recheck with your eye doctor tomorrow. To make an ER follow-up appointment, you can call [facility] ophthalmology at [phone] Please return to the ER right away if you have worsening swelling or worsening vision in your eyes, high fever, severe pain, or any other concerns. Prescriptions: No Action No Known Home Medications Stand Alone Forms: [employer] Info Instructions
[2024-09-01] MEDS: FLUORESCEIN SODIUM TOPICAL STRIP 1 STRIP EYE-LEFT (23:29)
[2024-09-01] MEDS: TETRACAINE 0.5% OPHTH 2 DROP EYE-LEFT (23:29)
--- OUTSIDE RECORDS SUMMARY | 2024-09-02 00:10 | XMS_ITS | Clinical Summary ---
Author Organization [facility] Address [address] [place] [address] Care Team Providers Care Cardiac Nurse Practitioner Name Role Phone Clyde Ayala M.D. Primary Care Provider [phone] Source Comments Patient records contain information from all sites at [facility]. For routine questions regarding patient records, call [phone] during business hours, M-F 8:00 AM - 5:00 PM Central Time. Record requests for emergency care only can be directed to [phone] at any time.[facility] Allergies No known active allergies Medications [...] your living situation today? I have a [facility] place to live 07/10/2023 Comments No Sex and Gender Information Value Date Recorded Sex Assigned at Female 07/10/2023 11:26 AM PLATE CLEANER Legal Sex Female 2:27 PM PLATE CLEANER Gender Identity Female 07/10/2023 11:26 AM PLATE CLEANER Sexual Orientation Straight 07/10/2023 11 :26 AM PLATE CLEANER Last Filed Vital Signs Vital Sign Reading Time Taken Comments Blood Pressure 112/71 11/23/2023 3:17 PM CDT Pulse 73 11/23/2023 3:17 PM CDT Temperature 36.6 C (97.9 F) 11/23/2023 3:17 PM CDT Respiratory Rate 20 11/23/2023 3:17 PM CDT Oxygen Saturation 98% 07/17/2023 3:06 PM PLATE CLEANER Inhaled Oxygen Concentration - - Weight 75.8 kg (167 lb) 11/23/2023 3:17 PM CDT Height 158.5 cm (5' 2.4) 07/17/2023 3:06 PM PLATE CLEANER Body Mass Index 30.15 07/17/2023 3:06 PM PLATE CLEANER Plan of Treatment Upcoming Encounters Date Type Department Care Team (Late st Contact Info) Description 10/01/2024 3:00 PM PLATE CLEANER Appointment Department of Radiology in [place], [place] [address] [place] [phone] Clyde Ayala M.D. [address] [place] [phone] Discharge Disposition: Home or Self Care Health [...] inpatients and all outpatients) 09/12/2023 5:08 PM PLATE CLEANER Screening Mammogram Breast Cancer HPV WITH GENOTYPING, PCR, THINPREP Routine 07/17/2023 4:04 PM PLATE CLEANER LIPID PANEL, S Routine 07/17/2023 3:55 PM PLATE CLEANER Hyperlipidemia Mixed from Last 3 Months or [...] Mantilla M.D. LAB BLOOD ADD-ON Final Result [facility] [address] [place] [address], [place] NPRG [facility] [place] [address] [place] [address] * BI Breast Screening Bilateral with Tomosynthesis (09/12/2023 5:08 PM PLATE CLEANER) Anatomical Region Laterality Modality Breast, Breast Imaging RST L OS, Breast Imaging ARZ LOS, Breast Imaging FLA LOS Bilateral Mammography Impressions 09/19/2023 10:04 AM PLATE CLEANER Negative. RECOMMENDATION: Annual Screening Mammogram ASSESSMENT: BI-RADS: 1: Negative. Narrative 09/19/2023 10:04 AM PLATE CLEANER EXAM: BI BREAST SCREENING BILATERAL WITH TOMOSYNTHESIS [...] with Genotyping, PCR, ThinPrep (07/17/2023 4:04 PM PLATE CLEANER) HPV with Genotyping, ThinPrep, PCR Negative Negative 07/18/2023 2:49 PM PLATE CLEANER MKTO Comment: Negative for high risk HPV [...] correlated with patient's history, clinical presentation, and PASTRY COOK cytology report. 07/17/2023 4:04 PM PLATE CLEANER 07/18/2023 7:00 AM PLATE CLEANER us Clyde Ayala M.D. LAB MICROBIOLOGY - GENERAL ORDER VINAY Final Result [facility] [address] [place] [address], [facility] [address] [facility] [address] [place] [address] * (ABNORMAL) Lipid Panel (07/17/2023 3:55 PM PLATE CLEANER) Triglycerides 150(H) mg/dL 07/17/2023 8:04 PM PLATE CLEANER NPRG Comment: ----REFERENCE VALUE---- Normal: <150 mg/dL Borderline High: 150-199 mg/dL High: 200-499 mg/dL Very High: > or =500 mg/dL Cholesterol, Total 229(H) mg/dL 2022 8:04 PM PLATE CLEANER NPRG Comment: ----REFERENCE VALUE---- Desirable: < 200 mg/dL Borderline High: 200 - 239 mg/dL High: > or = 240 mg/dL Cholesterol, LDL, Calculated 142(H) mg/dL 07/17/2023 8:04 PM PLATE CLEANER NPRG Comment: ----REFERENCE VALUE---- Desirable: <100 mg/dL Above Desirable: 100-129 mg/dL Borderline High: 130-159 mg/dL High: 160-189 mg/dL Very High: >=190 mg/dL ----ADDITIONAL INFORMATION---- LDL cholesterol calculated using the Murillo/NIH equation. Cholesterol, HDL 60 >=50 mg/dL 07/17/20 8:04 PM PLATE CLEANER NPRG Cholesterol, Non-HDL, Calculated 169(H) mg/dL 07/17/2023 8:04 PM PLATE CLEANER NPRG Comment: ----REFERENCE VALUE---- Desirable: <130 mg/dL Above Desirable: 130-159 mg/dL Borderline High: 160-189 mg/dL High: 190-219 mg/dL Very High: > or =220 mg/dL Fasting (8 HR or more) No 07/17/2023 7:05 PM PLATE CLEANER NPRG Blood (Blood, Venous) 07/17/2023 3:55 PM PLATE CLEANER 07/17/2023 7:05 PM PLATE CLEANER us Clyde Ayala M.D. LAB BLOOD ADD-ON Final Result [facility] [address] [place] [address], [facility] NPRG [facility] [place] [address] [place] [address] from Last 3 Months or Most Recently Relevant to Health Maintenance Insurance [facility] Care Teams Cardiac Nurse Practitioner Relationship Specialty Start Date End Date Clyde Ayala M.D. [address] [place] [address] PCP - General Family Medicine 07/17/23
--- OUTSIDE RECORDS SUMMARY | 2024-09-02 00:10 | XMS_ITS ---
Author Organization [facility] Address [address] [place] [address] Care Team Providers Care Narrow Fabric Loom Fixer Name Role Phone Unavailable Unavailable Unavailable Surgery Details Not on file Complications Check Surgery Details section. Procedure Estimated Blood Loss Check Surgery Details section. Procedure Findings Check Surgery Details section. Procedure Specimens Taken Check Surgery Details section.
--- OUTSIDE RECORDS SUMMARY | 2024-09-02 00:11 | XMS_ITS | Referral Summary ---
Author Organization [facility] Address [address] [place] [address] Care Team Providers Care Wind Turbine Erector Name Role Phone Clyde Ayala M.D. Primary Care Provider [phone] Source Comments Patient records contain information from all sites at [facility]. For routine questions regarding patient records, call [phone] during business hours, M-F 8:00 AM - 5:00 PM Central Time. Record requests for emergency care only can be directed to [phone] at any time.[facility] Encounters Date Type Department Care Team Description [...] your living situation today? I have a [facility] place to live 07/10/2023 Comments No Sex and Gender Information Value Date Recorded Sex Assigned at Female 07/10/2023 11:26 AM IMPROVEMENT DIRECTOR Legal Sex Female 2:27 PM IMPROVEMENT DIRECTOR Gender Identity Female 07/10/2023 11:26 AM IMPROVEMENT DIRECTOR Sexual Orientation Straight 07/10/2023 11 :26 AM IMPROVEMENT DIRECTOR Last Filed Vital Signs Vital Sign Reading Time Taken Comments Blood Pressure 112/71 11/23/2023 3:17 PM CDT Pulse 73 11/23/2023 3:17 PM CDT Temperature 36.6 C (97.9 F) 11/23/2023 3:17 PM CDT Respiratory Rate 20 11/23/2023 3:17 PM CDT Oxygen Saturation 98% 07/17/2023 3:06 PM IMPROVEMENT DIRECTOR Inhaled Oxygen Concentration - - Weight 75.8 kg (167 lb) 11/23/2023 3:17 PM CDT Height 158.5 cm (5' 2.4) 07/17/2023 3:06 PM IMPROVEMENT DIRECTOR Body Mass Index 30.15 07/17/2023 3:06 PM IMPROVEMENT DIRECTOR Plan of Treatment Upcoming Encounters Date Type Department Care Team (Late st Contact Info) Description 10/01/2024 3:00 PM IMPROVEMENT DIRECTOR Appointment Department of Radiology in [place], [place] [address] [place] [phone] Clyde Ayala M.D. [address] [place] [phone] Discharge Disposition: Home or Self Care Procedures Procedure Name Priority Date/Time Associated Diagnosis Comments BASIC METABOLIC PANEL, S/P Routine 11/23/2023 4:08 PM CDT Pain Hip Right Pain Toe Left BI BREAST SCREENING BILATERAL WITH TOMOSYNTHESIS RAD - Routine (most inpatients and all outpatients) 09/12/2023 5:08 PM IMPROVEMENT DIRECTOR Screening Mammogram Breast Cancer HPV WITH GENOTYPING, PCR, THINPREP Routine 07/17/2023 4:04 PM IMPROVEMENT DIRECTOR LIPID PANEL, S Routine 07/17/2023 3:55 PM IMPROVEMENT DIRECTOR Hyperlipidemia Mixed from Last 3 Months or [...] Mantilla M.D. LAB BLOOD ADD-ON Final Result [facility] [address] [place] [address], [facility] NPRG [facility] [address] [place] [address] * BI Breast Screening Bilateral with Tomosynthesis (09/12/2023 5:08 PM IMPROVEMENT DIRECTOR) Anatomical Region Laterality Modality Breast, Breast Imaging RST L OS, Breast Imaging ARZ LOS, Breast Imaging FLA LOS Bilateral Mammography Impressions 09/19/2023 10:04 AM IMPROVEMENT DIRECTOR Negative. RECOMMENDATION: Annual Screening Mammogram ASSESSMENT: BI-RADS: 1: Negative. Narrative 09/19/2023 10:04 AM IMPROVEMENT DIRECTOR EXAM: BI BREAST SCREENING BILATERAL WITH TOMOSYNTHESIS [...] with Genotyping, PCR, ThinPrep (07/17/2023 4:04 PM IMPROVEMENT DIRECTOR) HPV with Genotyping, ThinPrep, PCR Negative Negative 07/18/2023 2:49 PM IMPROVEMENT DIRECTOR MKTO Comment: Negative for high risk HPV [...] correlated with patient's history, clinical presentation, and ORTHOPTIST cytology report. 07/17/2023 4:04 PM IMPROVEMENT DIRECTOR 07/18/2023 7:00 AM IMPROVEMENT DIRECTOR us Clyde Ayala M.D. LAB MICROBIOLOGY - GENERAL ORDER VINAY Final Result [facility] [address] [place] [address], [facility] MKTO [address] [place] [id number] * (ABNORMAL) Lipid Panel (07/17/2023 3:55 PM IMPROVEMENT DIRECTOR) Triglycerides 150(H) mg/dL 07/17/2023 8:04 PM IMPROVEMENT DIRECTOR NPRG Comment: ----REFERENCE VALUE---- Normal: <150 mg/dL Borderline High: 150-199 mg/dL High: 200-499 mg/dL Very High: > or =500 mg/dL Cholesterol, Total 229(H) mg/dL 2022 8:04 PM IMPROVEMENT DIRECTOR NPRG Comment: ----REFERENCE VALUE---- Desirable: < 200 mg/dL Borderline High: 200 - 239 mg/dL High: > or = 240 mg/dL Cholesterol, LDL, Calculated 142(H) mg/dL 07/17/2023 8:04 PM IMPROVEMENT DIRECTOR NPRG Comment: ----REFERENCE VALUE---- Desirable: <100 mg/dL Above Desirable: 100-129 mg/dL Borderline High: 130-159 mg/dL High: 160-189 mg/dL Very High: >=190 mg/dL ----ADDITIONAL INFORMATION---- LDL cholesterol calculated using the Murillo/NIH equation. Cholesterol, HDL 60 >=50 mg/dL 07/17/20 8:04 PM IMPROVEMENT DIRECTOR NPRG Cholesterol, Non-HDL, Calculated 169(H) mg/dL 07/17/2023 8:04 PM IMPROVEMENT DIRECTOR NPRG Comment: ----REFERENCE VALUE---- Desirable: <130 mg/dL Above Desirable: 130-159 mg/dL Borderline High: 160-189 mg/dL High: 190-219 mg/dL Very High: > or =220 mg/dL Fasting (8 HR or more) No 07/17/2023 7:05 PM IMPROVEMENT DIRECTOR NPRG Blood (Blood, Venous) 07/17/2023 3:55 PM IMPROVEMENT DIRECTOR 07/17/2023 7:05 PM IMPROVEMENT DIRECTOR us Clyde Ayala M.D. LAB BLOOD ADD-ON Final Result [facility] [address] [place] [address], [place] NPRG [facility] [address] [place] [address] from Last 3 Months or Most Recently Relevant to Health Maintenance Insurance [employer] Care Teams Wind Turbine Erector Relationship Specialty Start Date End Date Clyde Ayala M.D. [address] [place] [phone] PCP - General Family Medicine 07/17/23
--- OUTSIDE RECORDS SUMMARY | 2024-09-02 00:11 | XMS_ITS | Referral Summary ---
Author Organization [facility] Address [address] [place] [phone] Phone Care Team Providers Care Associate Professor Of Media Arts Name Role Phone Laquita Victoria MD Primary Care Provider [phone] Source Comments [email or web address] is fully rolled out on [employer]. Last update 01/09/09.[place] [facility] Guide To Encounters Date Type Department Care Team Description 07/08/2024 Patient Outreach [facility] [address] [place] [address] Kamila Solis IBCLC 06/24/2024 Travel 06/24/2024 9:30 AM TECHNOLOGY TRAINER Office Visit [facility] [address] [place] [address] Laquita Victoria MD Colon cancer screening (Primary [...] Sex Assigned at Female 09/19/2019 7:07 AM TECHNOLOGY TRAINER Legal Sex Female 12:52 AM TECHNOLOGY TRAINER Gender Identity Female 09/19/2019 7:07 AM TECHNOLOGY TRAINER Sexual Orientation Not on file Last Filed Vital Signs Vital Sign Reading Time Taken Comments Blood Pressure 131/80 06/24/2024 9:08 AM TECHNOLOGY TRAINER Pulse 61 06/24/2024 9:08 AM TECHNOLOGY TRAINER Temperature 36.7 C (98 F) 06/24/2024 9:08 AM TECHNOLOGY TRAINER Respiratory Rate - - Oxygen Saturation 98% 06/24/2024 9:08 AM TECHNOLOGY TRAINER Inhaled Oxygen Concentration - - Weight 76.6 kg (168 lb 12.8 oz) 06/24/2024 9:08 AM TECHNOLOGY TRAINER Height 154 cm (5' 0.63) 06/24/2024 9:08 AM TECHNOLOGY TRAINER Body Mass Index 32.28 06/24/2024 9:08 AM TECHNOLOGY TRAINER Plan of Treatment Not on file Procedures Procedure Name Priority Date/Time Associated Diagnosis Comments TC LAB COLLECTION: VENOUS DRAW-HB CLINICS Routine 06/24/2024 10:35 AM TECHNOLOGY TRAINER EXTRA TUBE - LAVENDER Routine 06/24/2024 10:35 AM TECHNOLOGY TRAINER PANEL LIPID Routine 06/24/2024 10:32 AM TECHNOLOGY TRAINER Routine history and physical examination of adult Other fatigue Medicare annual wellness visit, initial Abnormal findings on diagnostic imaging of other parts of digestive tract C-REACTIVE PROTEIN Routine 06/24/2024 10 :32 AM TECHNOLOGY TRAINER Routine history and physical examination of adult Other fatigue Medicare annual wellness visit, initial PC TRIIODONTNYRONINE T3 FREE Routine 06/24/2024 10:32 AM TECHNOLOGY TRAINER Other fatigue Medicare annual wellness visit, initial T4 FREE (DIRECT ANALYSIS) Routine 2023 10:32 AM TECHNOLOGY TRAINER Other fatigue Medicare annual wellness visit, initial PC LAB THYROID PEROXIDASE LINDA TPO LINDA Routine 06/24/2024 10:32 AM TECHNOLOGY TRAINER Other fatigue Medicare annual wellness visit, initial PC THYROID STIMULATING HORMONE(TSH) VINH Routine 06/24/2024 10:32 AM TECHNOLOGY TRAINER Other fatigue Medicare annual wellness visit, initial PC BLOOD OCCULT FECAL HGB Routine 2022 8:00 AM CDT Colon cancer screening JANY MAMMOGRAM SCRN [place]LEY DIGITAL Routine 05/24/2022 1:20 PM CDT Visit for screening mammogram PAP SMEAR FINAL REPORT Routine 0 2:02 PM CDT from Last 3 Months or Most Recently Relevant to Health Maintenance Results * EXTRA TUBE - LAVENDER (06/24/2024 10:35 AM TECHNOLOGY TRAINER) [facility] Comment:Lavendar (EDTA) tube s collected at [facility] are stored for 3 days from the collection date. Blood 06/24/2024 10:3 5 AM TECHNOLOGY TRAINER 06/24/2024 10:51 AM TECHNOLOGY TRAINER Laquita Victoria MD LABORATORY Final Result [facility] [address] [place] [address] * (ABNORMAL) GLYCOSYLATED HGB - A1C (06/24/2024 10:35 AM TECHNOLOGY TRAINER) Hemoglobin A1C 5.9(H) 4.0 - 5.6 % [facility] Comment: Increased risk for diabetes (prediabetes): [...] Average Glucose 123(H) 68 - 114 mg/dL [facility] Comment: The estimated Average Glucose (eAG) was calculated using an equation derived from a study of 507 adults with type 1, type 2, or no diabetes. Minority populations were underrepresented and children were not included. The eAG is not equivalent to a fasting glucose concentration. Blood 06/24/2024 10:3 5 AM TECHNOLOGY TRAINER 06/24/2024 1:12 PM TECHNOLOGY TRAINER us Laquita Victoria MD LABORATORY Final Result [facility] [address] [place] [address] * T3 FREE (06/24/2024 10:32 AM TECHNOLOGY TRAINER) T3 Free 2.9 2.0 - 4.4 pg/mL [facility] Serum 06/24/2024 10:3 2 AM TECHNOLOGY TRAINER 06/24/2024 1:55 PM TECHNOLOGY TRAINER Laquita Vcitoria MD LABORATORY Final Result Performing Organization Address City/[facility] Co de Phone Number [facility] [address] [address] * TSH (06/24/2024 10:32 AM TECHNOLOGY TRAINER) TSH 2.89 0.27 - 4.20 mIU/L [facility] Blood 06/24/2024 10:3 2 AM TECHNOLOGY TRAINER 06/24/2024 1:57 PM TECHNOLOGY TRAINER Laquita Victoria MD LABORATORY Final Result Performing Organization Address [facility] Co de Phone Number [facility] [address] [address] * THYROID PEROXIDASE LINDA (TPO) (06/24/2024 10:32 AM TECHNOLOGY TRAINER) [facility] TPO Linda 3.5 0.0 - 9.0 IU/mL [facility] Comment: Performed By: [facility] [address] [place] [phone] Package Delivery Driver: Devon Erwin MD, PhD CLIA Number: [id number] Performed by [facility] [address] [place] [id number] [email or web address] Olvin Garcia MD, MS, Director of Laboratories Blood 06/24/2024 10:3 2 AM TECHNOLOGY TRAINER 06/24/2024 1:55 PM TECHNOLOGY TRAINER us Laquita Victoria MD LABORATORY Final Result Performing Organization Address [facility] Co de Phone Number [facility] [address] [place] [address], * (ABNORMAL) PANEL LIPID (06/24/2024 10:32 AM TECHNOLOGY TRAINER) Pathologist [facility] Cholesterol 287(H) <=200 mg/dL [facility] Comment: Interpretive Data <200 Desirable 200-239 Borderline high >=240 High HDL 74 >=50 mg/dL [facility] Comment: Interpretive Data Normal > 40 Male > 50 Female Triglyceride 112 <=150 mg/dL [facility] Comment: Interpretive Data <150 Normal 150-199 Borderline high 200-499 High >=500 Very high Calc LDL 191(H) <=100 mg/dL [facility] Comment: Interpretive Data <100 Desirable 100-129 Above desirable 130-159 Borderline high 160-189 High >=190 Very high Non-HDL Cholesterol Calculated 213(H) <=130 mg/dL [facility] Comment: Interpretive Data <130 Desirable 130-159 Above desirable 160-189 Borderline high 190-219 High >=220 Very high Blood 06/24/2024 10:3 2 AM TECHNOLOGY TRAINER 06/24/2024 1:57 PM TECHNOLOGY TRAINER Narrative [facility] - 06/24/2024 2:36 PM TECHNOLOGY TRAINER Fasting: Yes us Laquita Victoria MD LABORATORY Edited Result - Final Performing Organization Address [facility] Co de Phone Number [place] [phone] * T4 FREE (DIRECT ANALYSIS) (06/24/2024 10:32 AM TECHNOLOGY TRAINER) T4 Free 1.2 0.9 - 1.7 ng/dL [facility] Blood 06/24/2024 10:3 2 AM TECHNOLOGY TRAINER 06/24/2024 1:57 PM TECHNOLOGY TRAINER us Laquita Victoria MD LABORATORY Final Result Performing Organization Address [facility] Co de Phone Number [facility] [address] [address] * C-REACTIVE PROTEIN (06/24/2024 10:32 AM TECHNOLOGY TRAINER) C-Reactive Protein <3 <=4 mg/L [facility] Blood 06/24/2024 10:3 2 AM TECHNOLOGY TRAINER 06/24/2024 1:57 PM TECHNOLOGY TRAINER us Laquita Victoria MD LABORATORY Final Result Performing Organization Address [facility]/ZIP Co de Phone Number [facility] [address] [address] * IFOB (FECAL OCCULT BLOOD IMMUNOASSAY) (05/30/2023 8:00 AM CDT) Fecal Occult Blood Immunoassay Negative Negative [facility] Feces 05/30/2023 8:00 AM CDT 05/30/2023 10:56 PM CDT Laquita Victoria MD LABORATORY Final Result Performing Organization Address [facility] de Phone Number [facility] [address] [address] * [facility] MAMMOGRAM SCREEN BILAT DIGITAL (05/24/2022 1:20 PM CDT) Anatomical Region Laterality Modality Breast Bilateral Mammography Narrative 05/25/2022 8:14 AM CDT [facility] MAMMOGRAM SCREEN BILAT DIGITAL 05/24/2022 [...] REPORT (11/27/2009 2:02 PM CDT) Pap Final [facility] Accession Number: [id number] Source: SurePath liquid-based Pap test Final Interpretation: NEGATIVE FOR INTRAEPITHELIAL LESION OR MALIGNANCY * Report Electronically Signed By * TROY Ortiz, CT(ASCP) Screening Performed By: TROY Ortiz, CT(ASCP) AMT 12/04/09 Adequacy Interpretation: Satisfactory For Evaluation. Clinical History: MENSTRUAL STATUS: Not LMP: _ PREVIOUS ABNORMALS: _ HORMONE STATUS: _ [facility] 11/27/2009 2:02 PM CDT us Laquita Victoria MD LAB PATHOLOGY Final Result Performing Organization Address [facility]/ZIP Co de Phone Number [facility] [address] [address] from Last 3 Months or Most Recently Relevant to Health Maintenance Insurance [place] Care Teams Associate Professor Of Media Arts Relationship Specialty Start Date End Date Laquita Victoria MD PCP - General Family Medicine 11/25/09
--- OUTSIDE RECORDS SUMMARY | 2024-09-02 00:11 | XMS_ITS | Clinical Summary ---
Author Organization [employer] Address [address] [place] [address] Phone Care Team Providers Care Cheese Supervisor Name Role Phone Laquita Victoria MD Primary Care Provider [phone] Source Comments [employer] is fully rolled out on [employer]. Last update 01/09/09.[employer] Allergies No known active allergies Medications * [...] Description 07/08/2024 Patient Outreach [facility] [address] [place] [address] Kamila Solis, IBCLC 06/24/2024 9:30 AM TAG STRINGER Office Visit [facility] [address] [place] [address] Laquita Victoria MD Colon cancer screening (Primary [...] Sex Assigned at Female 09/19/2019 7:07 AM TAG STRINGER Legal Sex Female 12:52 AM TAG STRINGER Gender Identity Female 09/19/2019 7:07 AM TAG STRINGER Sexual Orientation Not on file Last Filed Vital Signs Vital Sign Reading Time Taken Comments Blood Pressure 131/80 06/24/2024 9:08 AM TAG STRINGER Pulse 61 06/24/2024 9:08 AM TAG STRINGER Temperature 36.7 C (98 F) 06/24/2024 9:08 AM TAG STRINGER Respiratory Rate - - Oxygen Saturation 98% 06/24/2024 9:08 AM TAG STRINGER Inhaled Oxygen Concentration - - Weight 76.6 kg (168 lb 12.8 oz) 06/24/2024 9:08 AM TAG STRINGER Height 154 cm (5' 0.63) 06/24/2024 9:08 AM TAG STRINGER Body Mass Index 32.28 06/24/2024 9:08 AM TAG STRINGER Plan of Treatment Health Maintenance Due Date [...] VENOUS DRAW-HB CLINICS Routine 06/24/2024 10:35 AM TAG STRINGER EXTRA TUBE - LAVENDER Routine 06/24/2024 10:35 AM TAG STRINGER PANEL LIPID Routine 06/24/2024 10:32 AM TAG STRINGER Routine history and physical examination of adult Other fatigue Medicare annual wellness visit, initial Abnormal findings on diagnostic imaging of other parts of digestive tract C-REACTIVE PROTEIN Routine 06/24/2024 10 :32 AM TAG STRINGER Routine history and physical examination of adult Other fatigue Medicare annual wellness visit, initial PC TRIIODONTNYRONINE T3 FREE Routine 06/24/2024 10:32 AM TAG STRINGER Other fatigue Medicare annual wellness visit, initial T4 FREE (DIRECT ANALYSIS) Routine 2023 10:32 AM TAG STRINGER Other fatigue Medicare annual wellness visit, initial PC LAB THYROID PEROXIDASE LINDA TPO LINDA Routine 06/24/2024 10:32 AM TAG STRINGER Other fatigue Medicare annual wellness visit, initial PC THYROID STIMULATING HORMONE(TSH) VINH Routine 06/24/2024 10:32 AM TAG STRINGER Other fatigue Medicare annual wellness visit, initial PC BLOOD OCCULT FECAL HGB Routine 2022 8:00 AM CDT Colon cancer screening [facility] MAMMOGRAM SCRN [facility] DIGITAL Routine 05/24/2022 1:20 PM CDT Visit for screening mammogram PAP SMEAR FINAL REPORT Routine 0 2:02 PM CDT from Last 3 Months or Most Recently Relevant to Health Maintenance Results * EXTRA TUBE - LAVENDER (06/24/2024 10:35 AM TAG STRINGER) LAVENDER TUBE [facility] Comment:Lavendar (EDTA) tube s collected at [facility] are stored for 3 days from the collection date. Blood 06/24/2024 10:3 5 AM TAG STRINGER 06/24/2024 10:51 AM TAG STRINGER us Laquita Victoria MD LABORATORY Final Result Performing Organization Address City/[facility]/ZIP Co de Phone Number [facility] [address] [place] [address] * (ABNORMAL) GLYCOSYLATED HGB - A1C (06/24/2024 10:35 AM TAG STRINGER) Hemoglobin A1C 5.9(H) 4.0 - 5.6 % [facility] Comment: Increased risk for diabetes (prediabetes): [...] Average Glucose 123(H) 68 - 114 mg/dL [facility] Comment: The estimated Average Glucose (eAG) was calculated using an equation derived from a study of 507 adults with type 1, type 2, or no diabetes. Minority populations were underrepresented and children were not included. The eAG is not equivalent to a fasting glucose concentration. Blood 06/24/2024 10:3 5 AM TAG STRINGER 06/24/2024 1:12 PM TAG STRINGER us Laquita Victoria MD LABORATORY Final Result [address] [address] * T3 FREE (06/24/2024 10:32 AM TAG STRINGER) T3 Free 2.9 2.0 - 4.4 pg/mL [facility] Serum 06/24/2024 10:3 2 AM TAG STRINGER 06/24/2024 1:55 PM TAG STRINGER Laquita Victoria MD LABORATORY Final Result Performing Organization Address City/[facility]/ZIP Co de Phone Number [address] [address] * TSH (06/24/2024 10:32 AM TAG STRINGER) TSH 2.89 0.27 - 4.20 mIU/L [facility] Blood 06/24/2024 10:3 2 AM TAG STRINGER 06/24/2024 1:57 PM TAG STRINGER Laquita Victoria MD LABORATORY Final Result Performing Organization Address [facility] Co de Phone Number [address] [address] * THYROID PEROXIDASE LINDA (TPO) (06/24/2024 10:32 AM TAG STRINGER) Pathologist [facility] TPO Linda 3.5 0.0 - 9.0 IU/mL [facility] Comment: Performed By: [facility] [address] [place] [id number] Professor Of Sport Management: Devon Erwin MD, PhD CLIA Number: [id number] Performed by [facility] [address] [place] [id number] [email or web address] Olvin Garcia MD, MS, Director of Laboratories Blood 06/24/2024 10:3 2 AM TAG STRINGER 06/24/2024 1:55 PM TAG STRINGER us Laquita Victoria MD LABORATORY Final Result Performing Organization Address City/[facility]/ZIP Co de Phone Number [facility] [address] [place] [address], * (ABNORMAL) PANEL LIPID (06/24/2024 10:32 AM TAG STRINGER) Cholesterol 287(H) <=200 mg/dL [facility] Comment: Interpretive Data <200 Desirable 200-239 Borderline high >=240 High HDL 74 >=50 mg/dL [facility] Comment: Interpretive Data Normal > 40 Male > 50 Female Triglyceride 112 <=150 mg/dL [facility] Comment: Interpretive Data <150 Normal 150-199 Borderline high 200-499 High >=500 Very high Calc LDL 191(H) <=100 mg/dL [facility] Comment: Interpretive Data <100 Desirable 100-129 Above desirable 130-159 Borderline high 160-189 High >=190 Very high Non-HDL Cholesterol Calculated 213(H) <=130 mg/dL [facility] Comment: Interpretive Data <130 Desirable 130-159 Above desirable 160-189 Borderline high 190-219 High >=220 Very high Blood 06/24/2024 10:3 2 AM TAG STRINGER 06/24/2024 1:57 PM TAG STRINGER Narrative [facility] - 06/24/2024 2:36 PM TAG STRINGER Fasting: Yes us Laquita Victoria MD LABORATORY Edited Result - Final [facility] [address] [address] * T4 FREE (DIRECT ANALYSIS) (06/24/2024 10:32 AM TAG STRINGER) T4 Free 1.2 0.9 - 1.7 ng/dL [facility] Blood 06/24/2024 10:3 2 AM TAG STRINGER 06/24/2024 1:57 PM TAG STRINGER us Laquita Victoria MD LABORATORY Final Result [facility] [address] [address] * C-REACTIVE PROTEIN (06/24/2024 10:32 AM TAG STRINGER) C-Reactive Protein <3 <=4 mg/L [facility] Blood 06/24/2024 10:3 2 AM TAG STRINGER 06/24/2024 1:57 PM TAG STRINGER us Laquita Victoria MD LABORATORY Final Result Performing Organization Address [facility] Co de Phone Number [facility] [address] [address] * IFOB (FECAL OCCULT BLOOD IMMUNOASSAY) (05/30/2023 8:00 AM CDT) Fecal Occult Blood Immunoassay Negative Negative [facility] Feces 05/30/2023 8:00 AM CDT 05/30/2023 10:56 PM CDT us Laquita Victoria MD LABORATORY Final Result Performing Organization Address [facility] [[email or web address]] de Phone Number [facility] [address] [address] * [facility] MAMMOGRAM SCREEN BILAT DIGITAL (05/24/2022 1:20 PM CDT) Anatomical Region Laterality Modality Breast Bilateral Mammography Narrative 05/25/2022 8:14 AM CDT [facility] MAMMOGRAM SCREEN BILAT DIGITAL 05/24/2022 [...] REPORT (11/27/2009 2:02 PM CDT) Pap Final [facility] Accession Number: [id number] Source: SurePath liquid-based Pap test Final Interpretation: NEGATIVE FOR INTRAEPITHELIAL LESION OR MALIGNANCY * Report Electronically Signed By * TROY Ortiz, CT(ASCP) Screening Performed By: TROY Ortiz, CT(ASCP) AMT 12/04/09 Adequacy Interpretation: Satisfactory For Evaluation. Clinical History: MENSTRUAL STATUS: Not LMP: _ PREVIOUS ABNORMALS: _ HORMONE STATUS: _ [facility] 11/27/2009 2:02 PM CDT us Laquita Victoria MD LAB PATHOLOGY Final Result [facility] [address] [place] [address] from Last 3 Months or Most Recently Relevant to Health Maintenance Insurance [place] MED[place] [employer] Fee For Serv Address: [facility] [address] [address] [place] [address] MEDICARE Care Teams Cheese Supervisor Relationship Specialty Start Date End Date Laquita Victoria MD PCP - General Family Medicine 11/25/09
[2024-09-02 00:17] VITALS: BP 115/74; PULSE 71; RESP 18; TEMP 36.7; O2SAT 98
[2024-09-02 00:20] VITALS: BP 115/74; PULSE 71; RESP 18; TEMP 36.7
== END 2024-09-02 00:21 | disposition home or self-care (01) ==
PROVIDERS: Emergency Provider Emergency Medicine
DX: H10.023 Other mucopurulent conjunctivitis, bilateral (principal)
CPT/HCPCS: 99282; 99283; A9270